=== PATIENT | male | born 1995 | race Caucasian/White ===

== ENCOUNTER 2017-05-13 17:51 | Emergency (ER) | payer OTHER ==
[~2017-05-13] VITALS: Ht 182.9 cm; Wt 88.0 kg
[2017-05-13 17:53] VITALS: BP 116/75
== END 2017-05-13 19:07 | disposition home or self-care (01) ==
LOC: EDBD 17:51 → ED 19:00
DX: L02.01 Cutaneous abscess of face (principal); F12.10 Cannabis abuse, uncomplicated
CPT/HCPCS: 99283